=== PATIENT | female | born 1975 | race Caucasian/White ===

== ENCOUNTER 2016-12-11 14:28 | Emergency (ER) | payer OTHER, SELFPAY ==
[2016-12-11] MEDS ORDERED: TORAdol 30 mg Injection IV ONE (14:57)
[2016-12-11] MEDS ORDERED: Vistaril 50 MG/ML IM ONE ×2 (14:57→14:59)
[2016-12-11] MEDS ORDERED: TORAdol 30 mg Injection ONE (14:59)
[2016-12-11 15:16] LABS: BASOPHIL % 0.2 % (0.0-0.4); Granulocytes % 79.4 % (36.0-66.0); Lymphocytes % 15.1 % (24.0-44.0); Mean Platelet Volume 11.4 fl (6-9.5); Monocytes % 4.3 % (0.0-12.0); Platelet Count 222 K/mm3 (150-450); Red Blood Count 4.02 M/mm3 (4.1-5.4); Red Cell Distribution Width 12.5 % (11.5-14.0); White Blood Count 9.9 K/mm3 (4.0-10.5)
[2016-12-11 15:17] LABS: Mean Corpuscular Hemoglobin 29.8 pg (26-32)
--- NOTE | 2016-12-11 15:23 | ERPHSYRPT ---
- History of Present Illness Time Seen by Provider: 12/11/16 14:34 Source: patient Patient Subjective Stated Complaint: pt co right rib and chest pain,cough,hurts with deep breath, no fever, for a week now, if also being treated for a UIT now Triage Nursing Assessment: pt holding right rib area, she states hurts worse with a deep breath, coughing up sputum at times she states [place]o black flecks in it, no trauma to ribs, pt alert and in no distress, resp easy,skin w/d Physician History: CC: right chest pain Hx: 41 y/o patient with right sided chest pain for a few days. Some cough. Pain worse with deep breath. She has remote hx of pleurisy. At that time had normal stress testing. She was seen in ER this past week and had normal cxr. She has been taking motrin. She was given Rx for bactrim but is taking cipro. She came back to ER to have her chest discomfort checked again. She has hx of depression and bipolar disorder. She sees a Dr in [place]. She moved to this area this weekend and has a fiance locally. Allergies/Adverse Reactions: meperidine HCl [From Demerol] Allergy (Mild, Verified 12/11/16 14:45) Hives Home Medications: Clonazepam 0.5 mg [Klonopin 0.5 MG] 0.5 mg PO BID 01/09/16 [History] Duloxetine HCl 30 mg [Cymbalta 30 MG Capsule] 60 mg PO DAILY 01/09/16 [ History] Gabapentin 600 mg PO QID 01/09/16 [History] Buspirone HCl 5 mg [Buspar 5 mg] 15 mg PO BID 07/22/16 [History] Modafinil [Provigil] 200 mg PO DAILY 12/09/16 [History] Trazodone HCl [Desyrel] 150 mg DAILY 12/11/16 [History] Hx Tetanus, Diphtheria Vaccination/Date Given: Yes Hx Influenza Vaccination/Date Given: Yes Hx Pneumococcal Vaccination/Date Given: Yes Immunizations Up to Date: Yes - Review of Systems Constitutional: No Fever, No Chills Eyes: No Symptoms Ears, Nose, & Throat: No Symptoms Respiratory: Cough, No Dyspnea Cardiac: Chest Pain (pleuritic right) Abdominal/Gastrointestinal: No Abdominal Pain, No Nausea, No Vomiting, No Diarrhea Genitourinary Symptoms: No Dysuria, No Hematuria, No Flank Pain Musculoskeletal: No Back Pain Skin: No Rash Neurological: No Headache All Other Systems: Reviewed and Negative - Past Medical History Pertinent Past Medical History: Yes Neurological History: No Pertinent History ENT History: No Pertinent History Cardiac History: No Pertinent History Respiratory History: Bronchitis Endocrine Medical History: No Pertinent History Musculoskeletal History: No Pertinent History GI Medical History: No Pertinent History History: Other Psycho-Social History: Anxiety, Bipolar, Depression Female Reproductive Disorders: No Pertinent History Other Medical History: frequent recurring kidney stones/infections; sepsis. Lupus - Past Surgical History Past Surgical History: Yes Neuro Surgical History: No Pertinent History Cardiac: No Pertinent History Respiratory: No Pertinent History Gastrointestinal: No Pertinent History Genitourinary: No Pertinent History Musculoskeletal: No Pertinent History, Orthopedic Surgery Female Surgical History: Section, Hysterectomy Other Surgical History: kidney stone lithoscopy. c4-c5 fusion. 7 lap surgeries for endometriosis - Social History Smoking Status: Former smoker How long have you smoked: e cig Exposure to second hand smoke: Yes (smokes e cigs) Drug Use: marijuana Patient Lives Alone: No - Female History Hx Last Menstrual Period: hyster - Nursing Vital Signs Nursing Vital Signs: Initial Vital Signs Temperature 98.8 F Temperature Source Oral Pulse Rate 85 Respiratory Rate 22 Blood Pressure [] 128/73 Pain Intensity 3 - Physical Exam General Appearance: alert Eye Exam: PERRL/EOMI Ears, Nose, Throat Exam: normal ENT inspection, moist mucous membranes Neck Exam: normal inspection, non-tender, supple Respiratory Exam: normal breath sounds, lungs clear, No respiratory distress Cardiovascular Exam: regular rate/rhythm, No murmur Gastrointestinal/Abdomen Exam: soft, No tenderness, No distention Back Exam: No CVA tenderness Extremity Exam: normal inspection, normal range of motion Neurologic Exam: alert, oriented x 3, cooperative Skin Exam: warm, dry, No rash SpO2 Interpretation: normal SpO2: 95 Oxygen Delivery: Room Air - Course Nursing assessment & vital signs reviewed: Yes EKG Interpreted by Me: RATE (65), Sinus Rhythm, NORMAL AXIS, NORMAL INTERVALS, NORMAL QRS, NORMAL ST-T - Radiology Exams cxr X-ray Interpretation: Discussed w/ radiologist, Negative Ordered Tests: Active Orders 24 hr Category Date Time Status Metal Furniture Glazier STAT Care 12/11/16 14:56 Active EKG-ER Only STAT Care 12/11/16 14:56 Active IV Insertion STAT Care 12/11/16 14:56 Active Pulse Oximetry (ED) STAT Care 12/11/16 14:56 Active CHEST 2 VIEWS (PA AND LAT) Stat Exams 12/11/16 14:56 Completed CBC W DIFF Stat Lab 12/11/16 15:05 Completed CMP Stat Lab 12/11/16 15:05 Completed D-DIMER QUANTITATION Stat Lab 12/11/16 15:05 Completed Medication Summary Discontinued Medications Generic Name Dose Route Start Last Admin Trade Name Freq PRN Reason Stop Dose Admin Hydroxyzine HCl 50 mg 12/11/16 14:57 12/11/16 15:00 Vistaril 50 Mg/Ml IM 12/11/16 14:58 50 mg STAT ONE Administration Hydroxyzine HCl Confirm 12/11/16 14:59 Vistaril 50 Mg/Ml Administered 12/11/16 15:00 Dose 50 mg IM .STK-MED ONE Ketorolac Tromethamine 30 mg 12/11/16 14:57 12/11/16 15:00 Toradol 30 Mg Injection IV 12/11/16 14:58 30 mg STAT ONE Administration Ketorolac Tromethamine Confirm 12/11/16 14:59 Toradol 30 Mg Injection Administered 12/11/16 15:00 Dose 30 mg .ROUTE .STK-MED ONE Lab/Rad Data: Laboratory Result Diagrams 12/11/16 15:05 12/11/16 15:05 Laboratory Results 12/11/16 12/11/16 12/11/16 Range/Units 15:05 15:05 15:05 WBC 9.9 (4.0-10.5) K/mm3 RBC 4.02 L (4.1-5.4) M/mm3 Hgb 12.0 (12.0-16.0) gm/dl Hct 37.4 (35-47) % MCV 93.0 (78-100) fl MCH 29.8 (26-32) pg MCHC 32.1 (32-36) g/dl RDW 12.5 (11.5-14.0) % Plt Count 222 (150-450) K/mm3 MPV 11.4 H (6-9.5) fl Gran % 79.4 H (36.0-66.0) % Lymphocytes % 15.1 L (24.0-44.0) % Monocytes % 4.3 (0.0-12.0) % Eosinophils % 1.0 (0.00-5.0) % Basophils % 0.2 (0.0-0.4) % Basophils # 0.02 (0-0.4) D-Dimer 0.288 (0.00-0.49) mg/L Sodium 141 (136-145) mEq/L Potassium 3.0 L* (3.5-5.1) mEq/L Chloride 105 (98-107) mEq/L Carbon Dioxide 24.2 (21-32) mEq/L Anion Gap 14.5 (5-15) MEQ/L BUN 9 (9-20) mg/dL Creatinine 0.84 (0.55-1.30) mg/dl Estimated GFR > 60 ML/MIN Glucose 117 H (70-110) MG/DL Calcium 9.1 (8.5-10.1) mg/dL Total Bilirubin 0.2 (0.2-1.0) mg/dL AST 18 (15-37) U/L ALT 21 (12-78) U/L Alkaline Phosphatase 89 (46-116) U/L Serum Total Protein 7.5 (6.4-8.2) gm/dL Albumin 4.0 (3.4-5.0) g/dL - Progress Progress Note: 12/11/16 16:24 Explained likely pleurisy. Pt has motrin at home and will continue. Advised follow up with local family doctor. No rash to suggest shingles. Will release with instructions. Counseled pt/family regarding: lab results, diagnosis, need for follow-up, rad results - Departure Time of Disposition: 16:25 Departure Disposition: Home Clinical Impression: pleuritic right chest pain Condition: Stable Critical Care Time: No Referrals: DOCTOR,NO FAMILY [Primary Care Provider] - Instructions: Pleurisy Additional Instructions: Cold packs off and on. Ibuprofen 600mg every 6 hours for pain. Follow up with local family doctor. No driving tonite and stay with family.
--- NOTE | 2016-12-11 15:36 | XRAY ---
Indication: Right chest pain. Comparison: 2 days ago. PA/lateral chest remains hyperinflated and clear. Heart and mediastinal structures again within normal limits. No new/acute findings. Impression: Stable nonacute hyperinflated chest.
[2016-12-11 15:38] LABS: ALKALINE PHOSPHATASE 89 U/L (46-116); ANION GAP 14.5 MEQ/L (5-15); BILIRUBIN,TOTAL 0.2 mg/dL (0.2-1.0); BLOOD UREA NITROGEN 9 mg/dL (9-20); CHLORIDE 105 mEq/L (98-107); Carbon Dioxide 24.2 mEq/L (21-32); Glucose 117 MG/DL (70-110); SGOT/AST 18 U/L (15-37); SGPT/ALT 21 U/L (12-78); Total Protein 7.5 gm/dL (6.4-8.2)
[2016-12-11 15:44] LABS: SODIUM 141 mEq/L (136-145)
[2016-12-11 15:57] VITALS: BP 128/73; PULSE 85
[2016-12-11 16:26] VITALS: O2SAT 95
== END 2016-12-11 16:36 | disposition home or self-care (01) ==
LOC: ED 14:28
DX: R07.81 Pleurodynia (principal); R05 Cough
CPT/HCPCS: 36000; 36415; 71020; 80053; 85025; 85379; 93005; 93041; 96372; 96374; 99283; 99285; J1885; J3410